=== PATIENT | male | born 1975 | race Caucasian/White ===

== ENCOUNTER 2018-05-17 09:40 | Emergency (ER) | payer SELFPAY ==
[2018-05-17] MEDS ORDERED: NS 0.9% 1000 ML* 2,000 ML IV ONE (10:15)
[2018-05-17] MEDS ORDERED: Morphine VIAL* 4 MG/ML VIAL (1 ml vial) IV ONE (10:15)
[2018-05-17] MEDS ORDERED: Ondansetron ODT TAB* 4 MG PO ONE (10:15)
[2018-05-17 10:37] LABS: ABS Basophils 0.1 10^3/ul (0-0.2); ABS Eosinophils 0.2 10^3/ul (0-0.6); ABS Lymphocytes 0.9 10^3/ul (1.0-4.8); ABS Monocytes 0.4 10^3/ul (0-0.8); ABS Neutrophils 6.8 10^3/ul (1.5-7.7); ABS Nucleated RBC 0 10^3/ul; Eosinophil % 2.6 % (0-6); Hematocrit 40 % (42-52); Hemoglobin 13.5 g/dl (14.0-18.0); Lymphocyte % 10.4 % (25-47); Mean Corpuscular HGB Conc 34 g/dl (31-36); Mean Corpuscular Hemoglobin 32 pg (27-31); Mean Corpuscular Volume 93 fL (80-94); Mean Platelet Volume 6.3 um3 (7.4-10.4); Nucleated Red Blood Cells % 0; Platelet Count 278 10^3/ul (150-450); Red Blood Count 4.28 10^6/ul (4.00-5.40); Red Cell Distribution Width 12 % (10.5-15); White Blood Count 8.3 10^3/ul (3.5-10.8)
[2018-05-17 10:46] LABS: INR 0.86 (0.77-1.02)
[2018-05-17 10:56] LABS: EGFR Non-African American 85.9 (>60)
[2018-05-17] MEDS ORDERED: Iohexol 300* (CONTRAST) 10 ML SDV IV ONE (11:16)
--- NOTE | 2018-05-17 11:56 | RAD ---
Indication: Chest pain. Single frontal view of the chest performed at 1031 hours was reviewed. No prior study is available. No mediastinal shift is noted. Heart is of normal size and configuration. Lung bedolla appear clear. IMPRESSION: NO ACTIVE CARDIOPULMONARY DISEASE IS NOTED.
--- NOTE | 2018-05-17 12:28 | RAD ---
Indication: Left flank pain after left back injury. Contrast: Administered 97.1 ml of OMNIPAQUE 300 mg/ml CT of the abdomen and pelvis was performed after IV contrast administration. No oral contrast was given. Coronal and sagittal reconstructed images were obtained. The lung bases demonstrate no pleural fluid, nodules or masses. Heart is of normal size without evidence of pericardial effusion. Liver is normal in size. No focal lesions or intrahepatic ductal dilatation is noted. The gallbladder demonstrates no calcified gallstones, pericholecystic fluid or wall thickening. The pancreas demonstrates no mass or pancreatic duct dilatation. The spleen is normal in size. No adrenal lesions are noted. The kidneys demonstrates no hydronephrosis of either kidney. No evidence of perinephric fluid or perinephric hematoma is noted. The kidneys demonstrate symmetric excretion. The retroperitoneal lymphadenopathy is noted. No dilated loops of bowel are noted. The prostate and seminal vesicles are unremarkable. The urinary bladder is unremarkable. No hernias are noted. There is no free fluid noted in the pelvis. Evaluation of the bony structures demonstrates pelvic ring to be intact. No fractures of the lumbar spine or ribs are noted. IMPRESSION: No evidence of perinephric hematoma is noted. No hydronephrosis is noted. No solid organ injury is identified. No evidence of fracture of the lumbar spine or ribs is noted.
[2018-05-17 12:59] LABS: Urine Appearance Clear; Urine Blood Negative (Negative); Urine Color Yellow; Urine Ketones 1+ (Negative); Urine Protein Negative (Negative); Urine Urobilinogen Negative (Negative)
[2018-05-17 13:13] VITALS: BP 129/80
--- NOTE | 2018-05-17 16:15 | ED ---
Eve Fontana Michael, scribed for Clif Cancino MD on 05/17/18 at 1025 . Abdominal Pain/Male - HPI Summary HPI Summary: A 42 y/o M presents to ED with c/o L flank onset 1900 yesterday and worsening this AM. Pain described as spasm, severe and radiating to L lower back. Pt states he was playing football when he fell and landed on someone's heel. Associated sx: L rib pain, LLQ tenderness. Denies hematuria, midline tenderness , LE pain. Aggravating factors: deep breaths, movement. NKA. Denies abd surgeries. - History of Current Complaint Chief Complaint: EDFlankPain Stated Complaint: FLANK INJURY Time Seen by Provider: 05/17/18 10:10 Hx Obtained From: Patient Onset/Duration: Sudden Onset, Still Present Timing: Constant, Lasting Hours Severity Initially: Moderate Severity Currently: Severe Pain Intensity: 10 Pain Scale Used: 0-10 Numeric Location: Flank - L Radiates to: Back, LLQ Character: Other: - spasm Aggravating Factor(s): Movement, Deep Breaths Associated Signs And Symptoms: Positive: Back Pain - pos: L lower back; neg: no midline tenderness, Other - pos: rib pain; neg: LE pain. Negative: Urinary Symptoms - Allergies/Home Medications Allergies/Adverse Reactions: Allergies Allergy/AdvReac Type Severity Reaction Status Date / Time No Known Allergies Allergy Verified 05/17/18 09:52 PMH/Surg Hx/FS Hx/Imm Hx Previously Healthy: Yes Infectious Disease History: No Infectious Disease History: Denies: Traveled Outside the [place] in Last 30 Days - Family History Known Family History: Negative: Cardiac Disease, Diabetes - Social History Occupation: Employed Full-time Lives: Dormitory/Roommates Hx Tobacco Use: No Review of Systems Negative: Fever Positive: Abdominal Pain - LLQ Positive: flank pain. Negative: other - neg: hematuria Positive: Myalgia - pos: L lower back; neg: midline tenderness, LE pain All Other Systems Reviewed And Are Negative: Yes Physical Exam - Summary Physical Exam Summary: General: well-appearing, mild pain distress Skin: warm, color reflects adequate perfusion, dry, no ecchymosis, no skin break. Head: normal Eyes: EOMI, HEATHER ENT: normal Neck: supple, nontender Respiratory: CTA, breath sounds present Cardiovascular: RRR Abdomen: mild LLQ Bowel: present Musculoskeletal: Tenderness to L-lower and posterior ribs and flank Neurological: sensory/motor intact, A&O x3 Psychological: affect/mood appropriate Triage Information Reviewed: Yes Vital Signs On Initial Exam: Initial Vitals Temp Pulse Resp BP Pulse Ox 97.8 F 91 16 119/74 98 05/17/18 09:51 05/17/18 09:51 05/17/18 09:51 05/17/18 09:51 05/17/18 09:51 Vital Signs Reviewed: Yes Diagnostics - Vital Signs Vital Signs Temp Pulse Resp BP Pulse Ox 05/17/18 09:51 97.8 F 91 16 119/74 98 - Laboratory Lab Results: Lab Results 05/17/18 05/17/18 05/17/18 Range/Units 10:22 10:22 10:22 WBC 8.3 (3.5-10.8) 10^3/ul RBC 4.28 (4.00-5.40) 10^6/ul Hgb 13.5 L (14.0-18.0) g/dl Hct 40 L (42-52) % MCV 93 (80-94) fL MCH 32 H (27-31) pg MCHC 34 (31-36) g/dl RDW 12 (10.5-15) % Plt Count 278 (150-450) 10^3/ul MPV 6.3 L (7.4-10.4) um3 Neut % (Auto) 81.2 (38-83) % Lymph % (Auto) 10.4 L (25-47) % [place] % (Auto) 5.1 (0-7) % Eos % (Auto) 2.6 (0-6) % Baso % (Auto) 0.7 (0-2) % Absolute Neuts (auto) 6.8 (1.5-7.7) 10^3/ul Absolute Lymphs (auto) 0.9 L (1.0-4.8) 10^3/ul Absolute Monos (auto) 0.4 (0-0.8) 10^3/ul Absolute Eos (auto) 0.2 (0-0.6) 10^3/ul Absolute Basos (auto) 0.1 (0-0.2) 10^3/ul Absolute Nucleated RBC 0 10^3/ul Nucleated RBC % 0 INR (Anticoag Therapy) 0.86 (0.77-1.02) APTT 27.1 (26.0-36.3) seconds Sodium 140 (135-145) mmol/L Potassium 4.2 (3.5-5.0) mmol/L Chloride 106 (101-111) mmol/L Carbon Dioxide 27 (22-32) mmol/L Anion Gap 7 (2-11) mmol/L BUN 17 (6-24) mg/dL Creatinine 0.96 (0.67-1.17) mg/dL Est GFR ( Amer) 103.9 (>60) Est GFR (Non-Af Amer) 85.9 (>60) BUN/Creatinine Ratio 17.7 (8-20) Glucose 91 (70-100) mg/dL Calcium 9.7 (8.6-10.3) mg/dL Total Bilirubin 0.30 (0.2-1.0) mg/dL AST 26 (13-39) U/L ALT 27 (7-52) U/L Alkaline Phosphatase 35 (34-104) U/L Total Protein 7.0 (6.4-8.9) g/dL Albumin 4.3 (3.2-5.2) g/dL Globulin 2.7 (2-4) g/dL Albumin/Globulin Ratio 1.6 (1-3) Lipase 39 (11.0-82.0) U/L Urine Color Urine Appearance Urine pH (5-9) Ur Specific [place] (1.010-1.030) Urine Protein (Negative) Urine Ketones (Negative) Urine Blood (Negative) Urine Nitrate (Negative) Urine Bilirubin (Negative) Urine Urobilinogen (Negative) Ur Leukocyte Esterase (Negative) Urine Glucose (Negative) Urine Ascorbic Acid (Negative) 05/17/18 Range/Units 12:35 WBC (3.5-10.8) 10^3/ul RBC (4.00-5.40) 10^6/ul Hgb (14.0-18.0) g/dl Hct (42-52) % MCV (80-94) fL MCH (27-31) pg MCHC (31-36) g/dl RDW (10.5-15) % Plt Count (150-450) 10^3/ul MPV (7.4-10.4) um3 Neut % (Auto) (38-83) % Lymph % (Auto) (25-47) % [place] % (Auto) (0-7) % Eos % (Auto) (0-6) % Baso % (Auto) (0-2) % Absolute Neuts (auto) (1.5-7.7) 10^3/ul Absolute Lymphs (auto) (1.0-4.8) 10^3/ul Absolute Monos (auto) (0-0.8) 10^3/ul Absolute Eos (auto) (0-0.6) 10^3/ul Absolute Basos (auto) (0-0.2) 10^3/ul Absolute Nucleated RBC 10^3/ul Nucleated RBC % INR (Anticoag Therapy) (0.77-1.02) APTT (26.0-36.3) seconds Sodium (135-145) mmol/L Potassium (3.5-5.0) mmol/L Chloride (101-111) mmol/L Carbon Dioxide (22-32) mmol/L Anion Gap (2-11) mmol/L BUN (6-24) mg/dL Creatinine (0.67-1.17) mg/dL Est GFR ( Amer) (>60) Est GFR (Non-Af Amer) (>60) BUN/Creatinine Ratio (8-20) Glucose (70-100) mg/dL Calcium (8.6-10.3) mg/dL Total Bilirubin (0.2-1.0) mg/dL AST (13-39) U/L ALT (7-52) U/L Alkaline Phosphatase (34-104) U/L Total Protein (6.4-8.9) g/dL Albumin (3.2-5.2) g/dL Globulin (2-4) g/dL Albumin/Globulin Ratio (1-3) Lipase (11.0-82.0) U/L Urine Color Yellow Urine Appearance Clear Urine pH 5.0 (5-9) Ur Specific [place] 1.040 H (1.010-1.030) Urine Protein Negative (Negative) Urine Ketones 1+ A (Negative) Urine Blood Negative (Negative) Urine Nitrate Negative (Negative) Urine Bilirubin Negative (Negative) Urine Urobilinogen Negative (Negative) Ur Leukocyte Esterase Negative (Negative) Urine Glucose Negative (Negative) Urine Ascorbic Acid * A (Negative) Result Diagrams: 05/17/18 10:22 05/17/18 10:22 Lab Statement: Any lab studies that have been ordered have been reviewed, and results considered in the medical decision making process. - Radiology CXR Xray Interpretation: No Acute Changes - Impression: No active cardiopulmonary disease is noted. ED provider has reviewed this report, see consult. Radiology Interpretation Completed By: Radiologist - CT A/P CT Interpretation: No Acute Changes - IMPRESSION: No evidence of perinephric hematoma is noted. No hydronephrosis is noted. No solid organ injury is identified. No evidence of fracture of the lumbar spine or ribs is noted. ED provider has reviewed this report, see consult. CT Interpretation Completed By: Radiologist Re-Evaluation - Re-Evaluation Re-eval #1 Re-Evaluation Time: 12:45 Change: Improved - A little bit Comment: Discussing imaging results w pt. Abdominal Pain Fem Course/Dx - Course Course Of Treatment: PAIN DECREASED IN THE ED. RESULTS DISCUSSED WITH THE PATIENT. DISCUSSED RETURNING TO THE ED IF WORSE. - Diagnoses Provider Diagnoses: Multiple fractures of ribs of left side, Left flank pain - Provider Notifications Discussed Care Of Patient With: Ro Hinson - Radiologist Time Discussed With Above Provider: 12:41 Instructed by Provider To: Other - Discussed imaging; Nondisplaced rib fracture T10/T11 Discharge - Sign-Out/Discharge Documenting (check all that apply): Discharge/Admit/Transfer - Discharge Plan Condition: Stable Disposition: HOME Prescriptions: HYDROcodone/ACETAMIN 5-325 MG* [[place] 5-325 TAB*] 1 tab PO Q4H PRN #30 tab MDD 6 PRN Reason: Pain Patient Education Materials: Rib Fracture (ED) Referrals: [facility] [place] [facility]FERRAL [Outside] Additional Instructions: FOLLOW UP WITH YOUR DOCTOR. TAKE IBUPROFEN 600MG EVERY 6 HOURS NEEDED FOR PAIN. USE THE NORCO DIRECTED NEEDED FOR PAIN. GET RECHECKED FOR ANY WORSENING OF YOUR CONDITION; PAIN, FEVER, SHORTNESS OF BREATH, YOU FEEL ILL OR QUESTIONS OR CONCERNS. - Billing Disposition and Condition Condition: STABLE Disposition: Home The documentation as recorded by the Eve clements Michael accurately reflects the service I personally performed and the decisions made by me, Clif Cancino MD.
== END 2018-05-17 13:23 | disposition home or self-care (01) ==
LOC: ED 09:40
DX: S22.42XA Multiple fractures of ribs, left side, initial encounter for closed fracture (principal); R10.9 Unspecified abdominal pain; W19.XXXA Unspecified fall, initial encounter; Y93.61 Activity, american tackle football; Y92.9 Unspecified place or not applicable
CPT/HCPCS: 36415; 71045; 74177; 80053; 81003; 83690; 85025; 85610; 85730; 96374; 99283; A9270-GY; J2270; Q9967